=== PATIENT | female | born 1985 | race Caucasian/White ===

== ENCOUNTER 2021-05-31 00:03 | Day surgery (SDC) | payer OTHER, SELFPAY ==
--- NOTE | 2021-05-20 09:40 | PC.NURSE ---
Report to the Outpatient Waiting Room, entrance under the green pavilion located off [facility], at time _0600 on date 05/31/21 . OR Time: _729 . - You and your visitor will be asked a series of questions to screen for COVID 19 for your protection. - A mask is required within the hospital. - Only one visitor is allowed at this time. Patient visitors will be guided where to wait when not with patient. Preoperative COVID Testing Requirements: No COVID Test needed if: (proof is required; if not received patient will have Rapid Test prior to entry) - Patient has received COVID Vaccine at least 14 days prior to procedure date or - Patient has positive COVID test result within last 90 days of surgery date. COVID Test needed if above criteria is not met If not COVID vaccinated a COVID test must be conducted within 72 hours of surgery and patient is asked to isolate self from time of testing until procedure. You will go to the [facility] for your COVID testing. The [facility] is located at the corner of [address] [facility]. You will only be called if COVID results are positive and your surgeon may reschedule your elective surgery date. Patients may have clear liquids (water, carbonated beverages, clear teas, apple juice) until 3 hours prior to surgery with a maximum of 20 ounces. - No food from midnight until time of surgery - Infants may have breast milk until 4 hours before surgery, infant formula 6 hours prior to surgery. - Children will be allowed to drink immediately following surgery. If applicable, please bring a bottle or sippy cup to assist with drinking. Juice, water, soda, and popsicles are readily available. For infants on formula, please bring formula the day of surgery. Pacifiers are allowed. Take the following medications with a SIP of water the morning of surgery: NONE Medications to discontinue per physician ____NONE Date to take last dose Please no make-up, nail omani, hairspray, perfume, deodorant, or body powder the day of surgery. No jewelry (including any body piercings) or valuables the day of surgery, leave them at home. Please take a shower or bath the night before, or the morning of, surgery with an antibacterial soap. Wear comfortable, loose fitting clothing. Children are encouraged to wear pajamas. - Jewelry must be removed prior to entering the operating room. Rings and piercings that are not removed may be cut off. - The hospital will not accept responsibility for valuables. - Please leave all valuables, including medications, at home the day of surgery. If you are going home after surgery, a licensed dolly driver must drive you home. - NO public transportation without another adult. - We recommend that an adult stay with you for 24 hours following discharge. - We also recommend that you do not drive, make important decision, drink alcoholic beverages, or take any drugs that were not prescribed by your health care provider for at least 24 hours after your discharge time. For Pediatric surgeries, we recommend two adults accompany the child home (only one inside the building at this time). Follow any additional instructions given to you from your surgeon. Telephone instructions given to _PATIENT and asked if any additional questions and then verbalized understanding. Patient advised to call surgeon office or pre surgery nurse liaison [phone] if any additional questions.
[2021-05-20 09:45] VITALS: BMI 35.4
--- NOTE | 2021-05-30 09:46 | WPDANESEPPF ---
Anes - Initial Pre Proc Eval Procedure: Operation Date: 05/31/21 07:30 Proposed Procedures p Bilateral Breast Reduction - Josh Nicole MD Date/Time: 05/30/21 09:46 Surgeon: Josh Nicole MD Pre Op Diagnosis: macromastia Patient Data Age: 35 Gender: F Height: 1.57 m Weight: 88 kg Allergies Allergy/AdvReac Type Severity Reaction Status Date / Time azithromycin AdvReac Vomiting Verified 05/30/21 08:07 Home Medications Medication Instructions Recorded Confirmed Type pantoprazole 20 mg PO BID 05/20/21 05/20/21 History Patient hx anesthesia problems: none Family hx anesthesia problems: none Results Review: All pre-operative results and documents have been reviewed as part of the pre-operative evaluation. [facility] Past Medical History Medical History (Updated 05/30/21 @ 09:47 by Pablo Zarate DO) GERD (gastroesophageal reflux disease) Surgical History Surgical History History of tonsillectomy Social History Social History Smoking status: Never smoker Living arrangements: with family Spiritual care concerns: No Anes - Eval Final PreProcedure Day of Procedure 05/30/21 09:46 Patient weight: obese Heart: regular rate and rhythm Lungs: clear to auscultation and normal air movement Airway: Mallampati scale class II Neurological: alert and oriented Last oral intake: >/= 8 hours ASA classification: II Emergent: no Anesthetic plan: proceed Anesthesia type and monitoring: general LMA and standard monitoring Results Review: All pre-operative results and documents have been reviewed as part of the pre-operative evaluation. Informed Consent: The patient's anesthetic plan and its attendant risks and benefits were discussed with the patient/family/POA. Questions were solicited and answers provided to the satisfaction of the patient/family/POA.
[2021-05-31] VITALS (10 sets, daily range): BP systolic 95–109; BP diastolic 55–74; PULSE 83–119; RESP 13–16; TEMP 36.2–37; O2SAT 97–100; BMI 34.9
[2021-05-31 06:44] LABS: Urine Cotinine NEGATIVE
--- NOTE | 2021-05-31 06:57 | WPDHPUPDATE1 ---
History and Physical Update Update Date/Time: 05/31/21 06:57 History and Physical has been reviewed, including an updated exam of the patient. There are NO changes in the patient's condition. Risks, benefits, and alternatives have been discussed and questions answered. Patient agrees to proceed with procedure.
--- NOTE | 2021-05-31 07:15 | P.OP_ITS ---
Procedure Note - Detailed Date of Procedure 05/31/21 Pre-op Diagnosis macromastia Post-op Diagnosis same Procedure Performed Bilateral Breast Reduction Surgeon Josh Nicole MD Anesthesia general Findings Inverted T Superior medial pedicle Tissue removed: Right 626 grams Left 703 grams Description of Procedure She is here today for bilateral breast reduction. Previously and again today the risks, benefits, alternatives were discussed in extensive detail. I wanted her to be very realistic about the risks involved as well as expectations. We discussed aftercare and what to monitor for. She understands we can never guarantee final breast size and there will always be asymmetry. I was very upfront and honest about the risks of sensation change and even nipple loss (). Made sure answered all of her questions to her satisfaction today and consent was obtained. She was marked in the preoperative holding area with their verification. The patient was taken to the operating room placed supine on the operating table. Anesthesia was provided by anesthesiology. She was prepped and draped in a standard sterile fashion. A surgical time-out was taken. Stab incisions were made and I tumessed with a tumescent solution. I marked out the nipple-areolar complex at 42 mm. I then de-epithelialized the pedicle. The pedicle was well left well more than 2 cm in thickness. I then removed the inferior portion of the breast as well as the central keel to get shape based on preoperative planning. At this point copiously irrigated with saline solution and verified a strict hemostasis. I reapproximated the pillars using a 2-0 PDS. I tailor tacked the breast into place with louis. She was placed in a sitting position. I verified the nipple-areolar complex position based on preoperative markings, intraoperative measurements, and obs ervation which were in full agreement. This nipple-areolar complex was marked at 42 mm in size. I then placed supine and de-epithelialized this. Nipple- areolar complex was inset with 3-0 Monocryl. I closed IMF deep with 1 strattafix. I closed the vertical incision with 3-0 Monocryl in the IMF with 3- 0 stratafix. Then everything was closed using a running subcuticular 4-0 Monocryl followed by Steri-Strips. A dressing was placed followed by surgical bra. Patient was awoke and taken to PACU without difficulty. All instrument sponge counts were correct at the end of the case. Estimated Blood Loss 50 Drains No Packing No Pathology yes (bilateral breat tissue) Complications No immediate complications Condition stable Disposition PACU
--- NOTE | 2021-05-31 07:18 | SUR.PREOP ---
IVF BOLUS OF 500ML STARTED
[2021-05-31] MEDS: LACTATED RINGERS 1,000 ML 30 ML IV CONT ×2 (07:19→09:51)
[2021-05-31] MEDS: TRANEXAMIC ACID 1,000MG/ISO100 1,000 MG/100 ML BAG 200 MG IVPB (07:25)
--- NOTE | 2021-05-31 07:32 | SUR.PREOP ---
0700; RN IN ROOM WHILE DR DENNIS MARKED PT. SPOUSE AT BEDSIDE
[2021-05-31] MEDS: ceFAZolin 2 GM/D5W 50 ML 2 GM/50 ML BAG IVPB (07:35)
[2021-05-31] MEDS: LACTATED RINGERS IRRIG 1,000 ML, LIDOCAINE HCL 1% LOCAL INJ 50 ML, EPINEPHrine HCL INJ ... INFILTRATE (08:01)
[2021-05-31] MEDS: fentaNYL CITRATE INJ (*CRX) 100 MCG/2 ML VIAL 25 MCG IV PUSH ×4 (10:10→10:19)
[2021-05-31] MEDS: PANTOPRAZOLE 40 MG TABLET PO (10:58)
[2021-05-31] MEDS: oxyCODONE HCL (*CRX) 5 MG TAB IR PO (11:00)
== END 2021-05-31 11:50 | disposition home or self-care (01) ==
PROVIDERS: PCP Hospitalist; Visit Provider Surgery Plastic and Reconstructive Surgery
PROC: 0HBV0ZZ Excision of Bilateral Breast, Open Approach (ICD-10-PCS; CPT 19318; principal; 2021-05-31 07:30)
DX: N62 Hypertrophy of breast (principal); N60.32 Fibrosclerosis of left breast; N60.31 Fibrosclerosis of right breast; N60.42 Mammary duct ectasia of left breast; N60.41 Mammary duct ectasia of right breast; N60.82 Other benign mammary dysplasias of left breast; N60.81 Other benign mammary dysplasias of right breast; N60.22 Fibroadenosis of left breast; N60.21 Fibroadenosis of right breast; N60.01 Solitary cyst of right breast; M54.9 Dorsalgia, unspecified; M54.2 Cervicalgia; G89.29 Other chronic pain; M25.511 Pain in right shoulder; M25.512 Pain in left shoulder; L98.9 Disorder of the skin and subcutaneous tissue, unspecified; L30.4 Erythema intertrigo; N64.4 Mastodynia; L57.4 Cutis laxa senilis; K21.9 Gastro-esophageal reflux disease without esophagitis; Z79.899 Other long term (current) drug therapy; E66.9 Obesity, unspecified; Z68.35 Body mass index [BMI] 35.0-35.9, adult
CPT/HCPCS: 19318; 80307; 88305; A9270; J0171; J0690; J1100; J1170; J1885; J2250; J2405; J2704; J3010; J7120